=== PATIENT | female | born 1960 | race Native Hawaiian/Other Pacific Islander ===

== ENCOUNTER 2018-08-10 22:32 | Inpatient (IN) | payer OTHER ==
[~2018-08-10] VITALS: Ht 160 cm; Wt 93.6 kg
[2018-08-10 22:57] VITALS: BP 138/73; TEMP 99.1
[2018-08-11] VITALS (7 sets, daily range): BP systolic 115–174; BP diastolic 67–94; TEMP 97.6–99.3; Ht 160 cm; Wt 93.6 kg
[2018-08-11 00:11] LABS: PLATELET COUNT 293 K/uL (152-353)
[2018-08-11 00:20] LABS: POTASSIUM 3.8 mmol/L (3.6-5.2)
[2018-08-11] MEDS ORDERED: METF500T PO (01:08)
[2018-08-11] MEDS ORDERED: ACTOS15 MG PO (01:09)
[2018-08-11] MEDS ORDERED: LISI5TAB10 PO (01:10)
[2018-08-11] MEDS ORDERED: INVOKANA100 MG PO (01:11)
[2018-08-11] MEDS ORDERED: CITALOPRAM20 M1 PO (01:11)
[2018-08-11] MEDS ORDERED: MAGNESIUM OXID400 M2 PO (01:12)
[2018-08-11] MEDS ORDERED: FENOFIBRATE160 MG PO (01:13)
[2018-08-11] MEDS ORDERED: MOBIC15 MG PO (01:15)
[2018-08-11] MEDS ORDERED: GLIP10TA55 PO (01:15)
[2018-08-11] MEDS ORDERED: CYCL10TA35 PO (01:15)
[2018-08-11] MEDS ORDERED: SIMV20TA2 PO (01:16)
[2018-08-11] MEDS ORDERED: GRALISE600 MG PO (01:16)
[2018-08-11] MEDS ORDERED: ALBUSOL INH (01:17)
[2018-08-11] MEDS ORDERED: ACET-689 PO (01:18)
[2018-08-11] MEDS ORDERED: LEVO0.0529 PO (01:19)
[2018-08-11] MEDS ORDERED: LEVOFLOXACIN750 MG PO (01:20)
[2018-08-11 05:30] LABS: PLATELET COUNT 272 K/uL (152-353)
[2018-08-11 05:43] LABS: POTASSIUM 4.1 mmol/L (3.6-5.2)
[2018-08-12] VITALS: BP 125/71; TEMP 98
[2018-08-12 03:49] VITALS: BP 131/67; TEMP 98
[2018-08-12 05:33] LABS: PLATELET COUNT 305 K/uL (152-353)
[2018-08-12 05:37] LABS: POTASSIUM 3.2 mmol/L (3.6-5.2)
[2018-08-12 08:00] VITALS: BP 134/76; TEMP 97.6
[2018-08-12 12:00] VITALS: BP 159/87; TEMP 98.9
[2018-08-12 16:00] VITALS: BP 148/79; TEMP 97.6
[2018-08-12 20:00] VITALS: BP 135/77; TEMP 97.7
[2018-08-13] VITALS: BP 140/71; TEMP 98
[2018-08-13 04:00] VITALS: BP 126/72; TEMP 98.2
[2018-08-13 04:26] LABS: PLATELET COUNT 342 K/uL (152-353)
[2018-08-13 04:35] LABS: POTASSIUM 3.6 mmol/L (3.6-5.2)
[2018-08-13 08:00] VITALS: BP 135/74; TEMP 98
[2018-08-13 12:00] VITALS: BP 145/78; TEMP 97.7
[2018-08-13 16:00] VITALS: BP 152/87; TEMP 97.9
[2018-08-13 20:00] VITALS: BP 159/85; TEMP 97.8
[2018-08-14] VITALS: BP 137/73; TEMP 97.9
[2018-08-14 04:00] VITALS: BP 151/83; TEMP 98.1
[2018-08-14 08:00] VITALS: BP 144/80; TEMP 97.6
[2018-08-14 12:00] VITALS: BP 154/92; TEMP 97.6
[2018-08-14] MEDS ORDERED: PRED10TA27 PO (14:45)
[2018-08-14] MEDS ORDERED: AZIT250T3 PO (14:49)
[2018-08-14] MEDS ORDERED: LEVAQUIN250 MG PO (14:49)
== END 2018-08-14 16:20 | disposition home or self-care (01) | DRG 190 ==
LOC: ED 22:32 → MED/SURG 08-11 01:16
PROVIDERS: Internal Medicine; ADMIT Internal Medicine
DX: J44.0 Chronic obstructive pulmonary disease with (acute) lower respiratory infection (principal); J18.8 Other pneumonia, unspecified organism; E11.42 Type 2 diabetes mellitus with diabetic polyneuropathy; F32.89 Other specified depressive episodes; G89.4 Chronic pain syndrome; E78.49 Other hyperlipidemia; E03.8 Other specified hypothyroidism; I10 Essential (primary) hypertension; Z72.0 Tobacco use
CPT/HCPCS: 36415; 80048; 80053; 81000; 82947; 83735; 85027; 87040; 87070; 87205; 87502; 87899; 90658; 94640; 94664; 94760; 96365; 96366; 96375; 99284; J0132; J0456; J0696; J1650; J1815; J1885; J2405; J2920; J2930